=== PATIENT | female | born 1975 | race Caucasian/White ===

== ENCOUNTER 2021-07-06 16:17 | Emergency (ER) | payer OTHER, SELFPAY ==
[2021-07-06 16:31] VITALS: BP 163/94; PULSE 77; RESP 12; TEMP 36.9; O2SAT 97; BMI 33.4
[2021-07-06] MEDS: Lidocaine HCl 2 % MPF 5 ML VIAL SUBCUT (18:43)
[2021-07-06] MEDS: Diphth,Pertus(ACell),Tet Adult 0.5 ML SYRINGE IM (19:04)
--- NOTE | 2021-07-06 19:08 | ED.GENADULT ---
HPI - General Adult General Chief complaint: General Medical Stated complaint: abscess Time Seen by Provider: 07/06/21 18:38 Source: patient Mode of arrival: ambulatory Limitations: no limitations History of Present Illness HPI narrative: This is a 45-year-old female presenting to the emergency department with the abscess to the right lateral aspect of hip. Patient tells me it has been building up for the past month. She tells me that she thinks she had a fever and she has also been experiencing chills. She is nervous because this is along the site of her surgical scar. She tells me it was kind of draining on its own however it stopped. At this time patient denies chest pain, shortness of breath, fevers, chills, nausea, vomiting, weakness, vision changes. Onset (ago): month(s) (1) Severity: mild Relieving factors: none Exacerbating factors: none Associated symptoms: denies other symptoms Treatments prior to arrival: none Related Data Previous Rx's Medication Instructions Recorded cephalexin 500 mg tablet 500 mg PO Q6H 7 Days #28 tab 07/06/21 doxycycline hyclate 100 mg capsule 100 mg PO BID 7 Days #14 cap 07/06/21 Allergies Allergy/AdvReac Type Severity Reaction Status Date / Time narcotics AdvReac Unknown Uncoded 07/06/21 18:30 Review of Systems Review of Systems: Constitutional : No Fever, No Chills, Cardiovascular : No Chest Pain, No SOB Respiratory : No Dyspnea Gastrointestinal : No abdominal pain Musculoskeletal : No Joint Swelling Skin : No rash, no skin laceration, + abscess Neuro : No Weakness, No Numbness Psych : No SI/HI Yes all other systems are reviewed and are negative [facility] Past Medical History Attestation statement: The following information was validated with the patient. Source: old records reviewed and nursing notes reviewed Social History Social History Advance Directives: No Advance Directives Information Provided: No Patient : No Physical Exam ED Vital Signs: Vital Signs - 24 hr 07/06/21 16:31 Temperature 98.5 F Pulse Rate 77 Respiratory Rate 12 Blood Pressure 163/94 H Pulse Oximetry 97 BMI result Body Mass Index 33.4 Vital signs stable. Appearance: Alert.? Oriented X3.? No acute distress.? Head: Normocephalic, atraumatic, no step-offs or deformities Eyes: Pupils equal, round and reactive to light.? ENT: Pharynx normal.? Neck: Normal inspection.? Neck supple.? CVS: Normal heart rate and rhythm.? Pulses normal.? Respiratory: No respiratory distress.? Breath sounds normal.? Abdomen: Soft and nontender.? Skin: Skin warm and dry.? Normal skin color.? Normal skin turgor.?+ small 2 cm x 2 cm abscess located to the right lateral aspect of thigh. Fluctuant. Warmth overlying the skin and some erythema. Extremities: No lower extremity edema.? No calf ttp. 5/5 strength to bilateral upper and lower extremities Back: No midline tenderness, no C-spine tenderness, full range of motion, no CVA tenderness bilaterally Neuro: Oriented X 3.? No motor deficit.? No sensory deficit. CN 2-12 intact Course Reevaluation(s) Reevaluation #1: I did a needle aspiration at the bedside and successfully got about 20 mL of serosanguineous fluid. It was sent for routine culture with Gram stain. At this time patient will be discharged home with antibiotics I will send her home with doxycycline and Keflex. She is got him her Boostrix shot. Worrisome signs and symptoms were discussed with the patient I advised her to return if any of these arise. At this time I feel comfortable with discharge home. Time: 19:14 Medical Decision Making [facility] Narrative Medical decision making narrative: 1898 45-year-old female presents with an abscess to the right lateral thigh x1 month. Patient has a history of IV drug abuse. Physical exam significant for 2 cm rice 2 cm abscess to the right lateral thigh with fluctuance overlying warmth and erythema. Concerning for cellulitis. Patient has full painless range of motion to bilateral lower extremities hip, knee. History and physical examination not consistent with septic joint. Negative Mely bilaterally. Plan at this time is needle aspiration. Patient will get a tetanus shot as she is not up-to-date on her tetanus. Medical Records Medical records reviewed: Yes I reviewed the patient's medical records. Lab Data Lab results reviewed: Yes I reviewed the patient's lab results. Critical Care Time Critical Care Time Critical Care Time: No Discharge Plan Discharge Clinical Impression: Abscess Patient Disposition: Home, Self-Care Instructions: Abscess (ED), Abscess Incision and Drainage (DC), Incision and Drainage (ED) Additional Instructions: Take your medications as prescribed. If you were prescribed antibiotics today, it is important that you take your medication to their entirety, do not skip any doses, do not finish them early. Follow-up with your primary care provider this week. Return to the emergency department with new or worsening symptoms. Such as fevers, chills, chest pain, shortness of breath, nausea, vomiting, dizziness, headache, vision changes, lethargy, warmth at this site, drainage at the site In case of emergency call 911 Prescriptions: New doxycycline hyclate 100 mg capsule 100 mg PO BID 7 Days Qty: 14 0RF cephalexin 500 mg tablet 500 mg PO Q6H 7 Days Qty: 28 0RF Referrals: Imani Burt MD [Primary Care Provider] - 1 week Stand Alone Forms: Work/School Release
== END 2021-07-06 19:32 | disposition home or self-care (01) ==
LOC: HO.ED 18:42
PROVIDERS: Emergency Provider Emergency Medicine Emergency Medical Services; PCP Internal Medicine
DX: L02.415 Cutaneous abscess of right lower limb (principal)
CPT/HCPCS: 10160; 87071; 87205; 90471; 90715; 99284